=== PATIENT | female | born 1965 | race Caucasian/White ===

== ENCOUNTER → 2017-12-15 | Outpatient (CLI) | payer BC ==
[2015-06-04 11:30] VITALS: BP 102/71
[~2017-12-15] MED LIST: ACID REDUCER75 MG PO; ALLEGRA ALLERG180 MG PO; AMBIEN CR12.5 MG PO; ATROVENT15 ML NS; DAILY VITE1 TA1 PO; FEOSOL325 MG PO; FLONASE ALLERG9.9 ML NS; LYRICA75 MG PO; MAXALT10 M2 PO; MERIBIN5 MG PO; ORTHO TRI-CYCLE1 TA2 PO; PROPRANOLOL HYD20 MG PO; VITAMIN B-1250 MC1 PO; [UNRECOGNIZED DRUG - OTHER] PO
== END ==
LOC: MAMMO 08:18
DX: Z12.31 Encounter for screening mammogram for malignant neoplasm of breast (principal)

== ENCOUNTER → 2020-08-31 | Outpatient (CLI) | payer BC ==
[2015-06-04 11:30] VITALS: BP 102/71
== END ==
LOC: MAMMO 08-28 11:30
DX: Z12.31 Encounter for screening mammogram for malignant neoplasm of breast (principal)

== ENCOUNTER → 2024-10-31 | Outpatient (CLI) | payer BC | LOC: MAMMO 14:57 | DX: Z12.31 Encounter for screening mammogram for malignant neoplasm of breast (principal) ==